=== PATIENT | male | born 1950 | race Caucasian/White ===

== ENCOUNTER → 2020-09-16 11:38 | Outpatient (CLI) | payer MEDICARE, OTHER, SELFPAY ==
--- NOTE | 2020-09-16 | DI.MRI.S_ITS ---
PROCEDURE: MR CERVICAL SPINE WO CON INDICATIONS: Cervicalgia TECHNIQUE: Noncontrast sagittal T1 spin echo and T2 fast spin echo, sagittal STIR, foraminal oblique sagittal T2 fast spin echo, and axial gradient echo or T2 fast spin echo through the cervical spine. COMPARISON: None. FINDINGS: Image quality: Excellent. Alignment and Curvature: No listhesis. Straightening and reversal of the usual cervical lordosis, likely degenerative. Vertebral body heights maintained. Bone Marrow: No suspicious focal marrow signal abnormality or bone marrow edema.. Spinal Cord: Normal morphology and signal intensity of the cervical cord. There is no syrinx. Regional Soft Tissues: Prevertebral and paraspinous soft tissues are grossly unremarkable in the absence of IV contrast. C2-C3: No spinal canal stenosis. Mild bilateral neural foraminal narrowing due to facet and uncovertebral hypertrophy, right greater than left. C3-C4: No spinal canal stenosis. Mild bilateral neural foraminal narrowing due to facet and uncovertebral hypertrophy. C4-C5: Mild spinal canal stenosis. Moderate left and mild right neural foraminal narrowing due to facet and uncovertebral hypertrophy. C5-C6: Mild spinal canal stenosis. Moderate bilateral neural foraminal narrowing due to facet and uncovertebral hypertrophy. C6-C7: No spinal canal stenosis. Moderate bilateral neural foraminal narrowing due to facet and uncovertebral hypertrophy. C7-T1: No spinal canal or neural foraminal stenosis. IMPRESSION: Multilevel multifactorial degenerative changes. Moderate neural foraminal narrowing on the left at C4-C5, bilaterally at C5-C6, and bilaterally at C6-C7. Dictated by: Maximilian Uriarte M.D. on 09/16/2020 at 13:06 Approved by: Maximilian Uriarte M.D. on 09/16/2020 at 13:12
== END ==
PROVIDERS: PCP Internal Medicine; Referring Provider Internal Medicine; Visit Provider Internal Medicine
DX: M54.2 Cervicalgia (principal); M47.812 Spondylosis without myelopathy or radiculopathy, cervical region; M48.02 Spinal stenosis, cervical region
CPT/HCPCS: 72141

== ENCOUNTER → 2021-01-21 13:39 | Outpatient (CLI) | payer MEDICARE, OTHER, SELFPAY ==
--- NOTE | 2021-01-21 | DI.RAD.S_ITS ---
PROCEDURE: XR KNEE LT 3V INDICATIONS: LEFT KNEE PAIN TECHNIQUE: 3 views of the knee were acquired. COMPARISON: None. FINDINGS: Bones: No fractures or dislocations. No suspicious bony lesions. Mild narrowing of the medial femoral tibial joint and tricompartmental periarticular osteophyte formation. Soft tissues: No joint effusion. No suspicious soft tissue calcifications. IMPRESSION: Mild tricompartmental knee joint degeneration, most notably involving the medial femorotibial joint. Dictated by: Dandre OQUENDO Interpreted: Maximilian Uriarte MD on 01/21/2021 at 13:54 Transcribed by: GLADYS on 01/21/2021 at 13:54 Approved by: Maximilian Uriarte M.D. on 01/24/2021 at 9:15
== END ==
PROVIDERS: PCP Internal Medicine; Referring Provider Family Medicine; Visit Provider Family Medicine
DX: M25.562 Pain in left knee (principal); M16.12 Unilateral primary osteoarthritis, left hip
CPT/HCPCS: 73562

== ENCOUNTER 2022-05-26 10:54 | Day surgery (SDC) | payer MEDICARE, OTHER, SELFPAY ==
[2022-05-26] VITALS (7 sets, daily range): BP systolic 121–149; BP diastolic 62–82; PULSE 46–66; RESP 10–16; TEMP 36.2–36.4; O2SAT 96–100; BMI 25.0
[2022-05-26] MEDS: LACTATED RINGERS 1,000 ML 100 ML IV (11:28)
--- NOTE | 2022-05-26 12:35 | PM.PREOP ---
Pre-operative Note Interval Note History & Physical reviewed/Exam performed by Physician: Yes Changes to H&P: No
[2022-05-26] MEDS: CLINDAMYCIN 900 MG/50 ML PIGGYBACK 50 MG IV (12:45)
--- NOTE | 2022-05-26 13:00 | SUR.OPER ---
Supine on padded OR bed, head on pillow, arms secured on padded arm boards at <90 degrees abduction, legs uncrossed, safety belt at thigh, tape over blanket over lower legs.
[2022-05-26] MEDS: BUPIVACAINE 0.25% (PF) VIAL 30 ML INJ (13:05)
[2022-05-26] MEDS: ALBUTEROL/IPRATROPIUM 3 ML AMPUL INH (14:22)
[2022-05-26] MEDS: ONDANSETRON 4 MG/2 ML INJ IV (14:35)
[2022-05-26] MEDS: OXYCODONE/ACETAMINOPHEN 5/325 TABLET 1 TAB PO (14:36)
--- NOTE | 2022-05-26 16:51 | PM.OP.1 ---
Operative Date/Time/Diagnoses Date of procedure: 05/26/22 Time of procedure: 16:51 Pre-op diagnosis: Left inguinal hernia Post-op diagnosis: same Procedure & Clinicians Procedure: Open left inguinal hernia repair Same procedure as scheduled: Yes Indications: 71-year-old male with a symptomatic reducible left inguinal hernia Surgeon: Shantanu Crocker Yes if Unassisted: Yes Anesthesia Type: General Operative Notes Findings: Large indirect hernia. Small direct floor defect Specimen(s): none sent Estimated Blood Loss (mL): 10 Procedure in detail: The patient was placed supine on the table and bilateral lower extremity compression devices were applied. Anesthesia was induced they were intubated with an LMA and received Ancef. A time-out was performed. They were prepped and draped in sterile fashion. The right external inguinal ring and the anterior superior iliac crest were identified and marked. 1 finger breath above the inguinal ligament the skin was infiltrated with 0.25% bupivacaine. The skin incision was made, the subcutaneous tissues were divided with electrocautery exposing the external oblique aponeurosis which was then opened along the direction of its fibers. Using blunt dissection the internal oblique aporneurosis was from the external oblique upper leaflet. The cord was carefully dissected away from the inguinal canal adjacent to the pubic tubercle. The cord including the vas deferens, testicular bloody supply, ilioguinal and genital nerve were encircled with a Sharif drain. A small direct floor defect was identified and its content was reduced back into the abdomen. The cremasteric fibers surrounding the cord were divided adjacent to the internal ring. The vas deferens and the testicular vessels were preserved and protected. The cord contents were carefully explored. There was a large indirect hernia on the anterior medial aspect of the cord which was skeletonized away from the vas deferens and testicular blood supply. The hernia sac was opened and it contained viable omentum. The hernia sac was then closed with Vicryl suture. Given the large size of the internal ring a plug of mesh was placed into the ring and secured to the adjacent fascia using Ethibond suture. A 7x 15 cm lightweight Bard Pro Loop hernia mesh was anchored to the insertion of the rectus muscle at the pubic tubercle such that there was approximately 2 cm of tubercle overlap with Ethibond. The inferior edge of the mesh was secured to the shelving edge of the inguinal ligament using Ethibond. Interrupted 3 0 Vicryl suture was used to anchor the superior aspect of the mesh to the conjoined tendon in several places. The tails were then reapproximated loosely around the spermatic cord. The tails of the mesh were then tucked under the external oblique aponeurosis. The repair was checked for hemostasis. The wound was irrigated with sterile saline. The external oblique aponeurosis was reapproximated in a running fashion using 3 0 Vicryl. The subcutaneous tissues were reapproximated with 3 0 Vicryl skin closed with 4 0 Monocryl followed by the application of Dermabond. At the end of the operation I ensured that both testicles were within the scrotum. The sponge instrument count at the end operation was correct. The patient emerged from anesthesia was extubated and transferred to the postoperative care unit in stable condition. A total of 30 ml of of 0.25% bupivicaine was used to infiltrate the skin. Complications: none Post-operative Condition: stable Disposition: same day surgery
== END 2022-05-26 15:19 | disposition home or self-care (01) ==
PROVIDERS: PCP Family Medicine; Referring Provider Surgery; Visit Provider Surgery
PROC: (CPT 49505; principal; 2022-05-26 12:30)
DX: K40.90 Unilateral inguinal hernia, without obstruction or gangrene, not specified as recurrent (principal)
CPT/HCPCS: 49505; J1100; J2405; J2704; J3010

== ENCOUNTER → 2024-11-07 10:35 | Outpatient (CLI) | payer MEDICARE, OTHER, SELFPAY ==
--- NOTE | 2024-11-07 10:38 | DI.MRI.S_ITS ---
PROCEDURE: MR CERVICAL SPINE WO CON INDICATIONS: Radiculopathy, cervical region TECHNIQUE: Noncontrast sagittal T1 spin echo and T2 fast spin echo, sagittal STIR, foraminal oblique sagittal T2 fast spin echo, and axial gradient echo or T2 fast spin echo through the cervical spine. COMPARISON: [facility], MR, MR CERVICAL SPINE WO CON, 09/16/2020, 11:49. FINDINGS: Image quality: Excellent. Alignment and Curvature: There is partial loss of cervical lordosis. There is minimal C4 anterolisthesis. Bone Marrow: Marrow demonstrates normal overall signal. Spinal Cord: Visualized spinal cord has normal size and signal. No cerebellar tonsillar herniation. Paraspinous Soft Tissues: No paravertebral masses. Prevertebral soft tissues are normal in thickness. C2-C3: There is uncinate process and facet arthropathy, with at least moderate right foraminal stenosis. C3-C4: There is uncinate process arthropathy with mild to moderate bilateral foraminal stenosis, more on the right. C4-C5: There is posterior osteophyte/disc bulge complex as well as uncinate process and facet arthropathy. There is moderate bilateral foraminal stenosis, slightly more on the left. C5-C6: There is posterior osteophyte/disc bulge complex as well as bilateral uncinate process arthropathy. There is mild central canal narrowing and moderate left and [id number] right foraminal stenosis. C6-C7: There is posterior osteophyte/disc bulge complex and bilateral uncinate process arthropathy. There is mild to moderate bilateral foraminal stenosis, more on the right. C7-T1: There is uncinate process and facet arthropathy with moderate to severe left and [id number] right foraminal stenosis IMPRESSION: 1. Multilevel degenerative changes with bilateral foraminal stenosis as above, essentially stable compared to prior study. 2. No new disc extrusion, advanced central spinal stenosis or acute osseous lesion. Dictated by: Estevan Castillo M.D. on 11/08/2024 at 16:42 Approved by: Estevan Castillo M.D. on 11/08/2024 at 16:48
== END ==
LOC: MRI 10:37
PROVIDERS: PCP Family Medicine; Referring Provider Family Medicine; Visit Provider Family Medicine
DX: M47.22 Other spondylosis with radiculopathy, cervical region (principal); M48.02 Spinal stenosis, cervical region; M50.10 Cervical disc disorder with radiculopathy, unspecified cervical region
CPT/HCPCS: 72141